=== PATIENT | female | born 1985 | race Hispanic/Latino ===

== ENCOUNTER 2019-04-30 08:40 | Outpatient (CLI) | payer OTHER ==
--- NOTE | 2019-04-30 10:11 | ULT ---
OB ULTRASOUND: HISTORY: anatomy. FINDINGS: A single live intrauterine gestation is seen with measurements corresponding to an estimated gestatio nal age of 19 weeks 4 days and an KATHRYN of 09/20/2019. The estimated weight measures 297 g or 10 oz (76th percentile by Hadlock criteria). measurements are as follows: BPD: 4.38 cm (19 weeks 2 days) HC: 16.63 cm (19 weeks 3 days) AC: 14.15 cm (19 weeks 4 days) FL: 3.09 cm (19 weeks 5 days) heart rate measures 160 beats per minute. Placenta is anteriorly located without evidence of pl acenta previa. HOLLAND measures 9.6 cm. Cervical length measures 4.9 cm. Three vessel cord, cord insertion, kidneys, bladder, stomach, lateral ventricles, cerebellum, s pine, lips/nose and upper and lower extremities are visualized without definite anomalies. The four chambered heart is not satisfactorily imaged. IMPRESSION: Single live intrauterine of 19 weeks' 4 days' estimated gestational age and estimated date of delivery of 09/20/2019. POS: SHARRI
== END 2019-04-30 08:41 | disposition home or self-care (01) ==
LOC: BICULT 08:40
PROVIDERS: ATTEND Family Medicine
DX: Z34.82 Encounter for supervision of other normal pregnancy, second trimester (principal); Z3A.19 19 weeks gestation of pregnancy
CPT/HCPCS: 76805

== ENCOUNTER 2019-08-25 12:09 | Day surgery (SDC) | payer OTHER ==
[2019-08-25 12:51] VITALS: BMI 36.1
[2019-08-25] MEDS ORDERED: Fioricet 325/50/40 mg Tablet PO PRN (13:05)
[2019-08-25] MEDS ORDERED: hydrALAZINE 20 MG/ML VIAL SLOW IVP PRN (13:10)
[2019-08-25 13:44] LABS: Hemoglobin 11.4 g/dL (12.0-16.0); Mean Corpuscular HGB CONC 33.7 g/dL (32.0-36.0); Mean Corpuscular Hemoglobin 29.5 pg (27.0-31.0); Mean Corpuscular Volume 87.4 fL (78.0-98.0); Mean Platelet Volume 12.5 fL (7.4-10.4); Platelet Count 111 thou/uL (130-400); RBC Distribution Width 13.5 % (11.5-14.5); Red Blood Cell (RBC) Count 3.87 mill/uL (4.20-5.40); White Blood Cell (WBC) Count 6.6 thou/uL (4.8-10.8)
[2019-08-25 13:52] LABS: Creatinine, Urine 197.78 mg/dL (47-110)
[2019-08-25 14:02] LABS: ALT (SGPT) 24 U/L (8-55); AST (SGOT) 46 U/L (5-34); Albumin 3.2 g/dL (3.5-5.0); Alkaline Phosphatase 86 U/L (40-110); Anion Gap 13 mmol/L (10-20); BUN (Urea Nitrogen) 7 mg/dL (7.0-18.7); Bilirubin, Total 0.3 mg/dL (0.2-1.2); Calc. Creatinine Clearance 230 mL/min (70-130); Calcium 8.4 mg/dL (7.8-10.44); Carbon Dioxide 18 mmol/L (22-29); Chloride 109 mmol/L (98-107); Estimated GFR-MDRD Greater than 90; Globulin 3.2 g/dL (2.4-3.5); Glucose 108 mg/dL (70-105); Potassium 3.7 mmol/L (3.5-5.1); Protein, Total 6.4 g/dL (6.0-8.3); Sodium 136 mmol/L (136-145)
[2019-08-25] MEDS ORDERED: HumaLOG 300 UNITS/3 ML VIAL SC SCH (16:33)
--- NOTE | 2019-08-25 18:22 | PRG ---
DATE OF SERVICE: 08/25/2019 PRIMARY OB: Dr. Lizzy Overton. CHIEF COMPLAINT: Elevated blood pressures with headache. HISTORY OF PRESENT ILLNESS: The patient is a 34-year-old, G2, P1 female with an intrauterine at , who is presenting to Labor and Delivery at her doctor's recommendation due to elevated pressures at home. The patient reports at home she has been having pressures in the 140 over 80s to 90s, and had been having a frontal headache today. The patient's course is complicated with type 2 diabetes on insulin with good blood sugar control. On arrival, the patient reports that she has been having good control. She denies fever, illness, cough, chest pain, shortness of breath, nausea, vomiting, diarrhea, constipation, hip problems, knee problems, muscle weakness. PAST MEDICAL HISTORY: Type 2 diabetes, depression. PAST SURGICAL HISTORY: Negative. SOCIAL HISTORY: Denies drug, alcohol, or tobacco use. OB LABS: Blood type is A positive. HIV negative. Syphilis negative. GC and chlamydia are negative. Rubella immune. REVIEW OF SYSTEMS: Per HPI. PHYSICAL EXAMINATION: VITAL SIGNS: Blood pressure on arrival was 145/85, heart rate of 85, respiratory rate of 20, saturating 97% on room air, temperature 98.3. Over the course of 4 hours, blood pressures had normalized with only that single elevated pressure. The remaining pressures ranged from one teens to 130s over 50s to 70s diastolic. GENERAL: She appears to be in no acute distress. She is alert, oriented, cooperative, and pleasant to interact with. HEAD: Normocephalic, atraumatic. ABDOMEN: Soft. DTRs are not difficult to elicit. heart tracing shows the fetus with a baseline in the 130s with moderate long-term variability, positive 15 x 15 accelerations, no decelerations, no contractions on the monitor. LABORATORY DATA: Labs today show white count of 6.6, hemoglobin of 11.4, hematocrit of 33.9, platelets of 111,000. Reviewing her platelets over the course of this show a drop from 150s in February slowly over the course of her till 111,000 today. Sodium 136, potassium 3.7, BUN 7, creatinine 0.58, glucose 108, T bilirubin 0.3, AST of 46, ALT of 24, AST urine of 30, creatinine of 197 giving us a protein to creatinine ratio of less than 0.15. ASSESSMENT AND PLAN: The patient is a 34-year-old female with an intrauterine at with type 2 diabetes on insulin and having some borderline elevated pressures at home. Here over the course of 4 hours, blood pressures have been normal except for a single mild range elevation on arrival. Labs have been insignificant except for some thrombocytopenia, which seems to be repeating a course similar to her last . The patient may be developing gestational thrombocytopenia. The patient is following up with her primary OB on . I have given her provider an update including lab findings. The patient is being discharged home with precautions, fetus has a category 1 tracing and reactive NST. During her stay, the patient had a meal and was given 5 units of Humalog consistent with what she does at home. Job ID: [id number]
== END 2019-08-25 17:15 | disposition home or self-care (01) ==
LOC: L&D/OP 12:09
PROVIDERS: ATTEND Family Medicine
DX: O99.89 Other specified diseases and conditions complicating pregnancy, childbirth and the puerperium (principal); R03.0 Elevated blood-pressure reading, without diagnosis of hypertension; R51 Headache; O24.919 Unspecified diabetes mellitus in pregnancy, unspecified trimester; O99.340 Other mental disorders complicating pregnancy, unspecified trimester; F32.9 Major depressive disorder, single episode, unspecified; Z3A.00 Weeks of gestation of pregnancy not specified; Z79.4 Long term (current) use of insulin
CPT/HCPCS: 36415; 80053; 82570; 84156; 85027

== ENCOUNTER 2019-09-08 09:58 | Inpatient (IN) | payer OTHER ==
[~2019-09-08 09:58] MED LIST: Lidocaine 2% MPF 10 ML AMP (For Epidural Use) ONE
[2019-09-08 11:09] VITALS: BMI 37.5
[2019-09-08] MEDS ORDERED: Acetaminophen/Codeine 30-300mg Tablet PO PRN (11:34)
[2019-09-08] MEDS ORDERED: Misoprostol 200 MCG TAB PR PRN (11:34)
[2019-09-08] MEDS ORDERED: Acetaminophen 500 MG TAB PO PRN (11:34)
[2019-09-08] MEDS ORDERED: hydrALAZINE 20 MG/ML VIAL SLOW IVP PRN (11:34)
[2019-09-08] MEDS ORDERED: Promethazine HCl 25 MG/ML VIAL IM PRN (11:34)
[2019-09-08] MEDS ORDERED: Lidocaine 1% (PF) 30 ML VIAL SC PRN (11:34)
[2019-09-08] MEDS ORDERED: HYDROcodone/Acetaminophen 5/325 mg Tablet PO PRN (11:34)
[2019-09-08] MEDS ORDERED: Butorphanol Tartrate 1 MG/ML VIAL SLOW IVP PRN (11:34)
[2019-09-08] MEDS ORDERED: NS / Oxytocin 40 units/1000ml 1,000 ML IV PRN (11:34)
--- NOTE | 2019-09-08 11:40 | CON ---
DATE OF CONSULTATION: 09/08/2019 CONSULTING PHYSICIAN: Lizzy Overton MD. HISTORY OF PRESENT ILLNESS: This is a 34-year-old, G5, P4, at 38 weeks and 6 days, who was sent from the clinic for elevated blood pressures at term greater than 160s and a headache. The patient has been followed for type 2 diabetes and was controlled on oral glycemic agents until recently and was placed on insulin. Her blood sugars are reportedly controlled well with Lantus and Humalog. She has been followed for mild range blood pressures in clinic for several weeks, however, when she was seen in clinic today, she was noted to have blood pressures in the 160s with headache. She has also been followed for declining platelets, which has been consistent with her previous pregnancies. Upon presentation, the patient still complains of mild headache, but it does not worsen. She denies any visual changes or right upper quadrant pain. She denies any vaginal bleeding, leakage of fluid , contractions, or decreased movement. REVIEW OF SYSTEMS: Negative for head, eyes, ears, nose, throat, cardiovascular, respiratory, GI, , neuropsych, musculoskeletal, skin, or constitutional symptoms other than mentioned above. PAST MEDICAL HISTORY: Type 2 diabetes. PAST SURGICAL HISTORY: None. ALLERGIES: NO KNOWN DRUG ALLERGIES. MEDICATIONS: 1. Metformin 1000 mg p.o. b.i.d. 2. vitamin daily. 3. Lantus 30 units daily. 4. Humalog 7 units with meals. 5. Zoloft 20 mg daily. 6. Aspirin 81 mg daily. SOCIAL HISTORY: Negative for tobacco, alcohol, or drug abuse. PHYSICAL EXAMINATION: VITAL SIGNS: Blood pressure 150/100, pulse 79, respiratory rate 18, temperature 98.6. GENERAL: Awake, alert, no acute distress. CHEST: Nonlabored. ABDOMEN: Obese gravid, soft, nontender to palpation. PELVIC: Normal-appearing external female genitalia. SVE; 2, thick and high. Unable to palpate presenting part. IMAGING STUDIES: I performed a bedside ultrasound to assess position and confirmed the fetus to be in vertex presentation. ASSESSMENT AND PLAN: A 34-year-old, G5, P4, at 38 weeks and 6 days with type 2 diabetes and new onset hypertension at term. Plan is to proceed with induction of labor for elevated blood pressures at term, however, they are not severe here at this time. We will continue to monitor her blood pressures and if severe, I would recommend starting magnesium as well as antihypertensive treatment at that time. At this point, they are not severe range and did not require treatment. Would recommend preeclampsia labs to further assess. I will be available for any further questions or concerns. Job ID: [id number] MTDD
[2019-09-08] MEDS ORDERED: Dextrose 5% in Water 1,000 ML IV PRN (11:42)
[2019-09-08] MEDS ORDERED: Dextrose 50% Abboject 50 ML SYRINGE SLOW IVP PRN (11:42)
[2019-09-08] MEDS ORDERED: NS w/ Oxytocin 10 units 500 ML IV SCH (11:45)
[2019-09-08] MEDS: Misoprostol 100 MCG TAB VAG SCH ×2 (11:54→18:18)
[2019-09-08] MEDS: Lactated Ringer's 1,000 ML IV SCH (11:55)
[2019-09-08 12:29] LABS: Hemoglobin 12.5 g/dL (12.0-16.0); Mean Corpuscular HGB CONC 33.6 g/dL (32.0-36.0); Mean Corpuscular Hemoglobin 29.3 pg (27.0-31.0); Mean Corpuscular Volume 87.1 fL (78.0-98.0); Platelet Count 121 thou/uL (130-400); RBC Distribution Width 14.1 % (11.5-14.5); Red Blood Cell (RBC) Count 4.26 mill/uL (4.20-5.40); White Blood Cell (WBC) Count 7.4 thou/uL (4.8-10.8)
[2019-09-08 13:10] LABS: Hep B Surf Ag Non-Reactive S/CO (NonReactive)
[2019-09-08 13:11] LABS: Syphilis Antibody Nonreactive (Nonreactive); Syphilis Antibody Index 0.06 S/CO (<1.00 Non-Reactive)
[2019-09-08 13:29] LABS: ALT (SGPT) 21 U/L (8-55); AST (SGOT) 42 U/L (5-34); Albumin 3.4 g/dL (3.5-5.0); Alkaline Phosphatase 97 U/L (40-110); Anion Gap 15 mmol/L (10-20); BUN (Urea Nitrogen) 11 mg/dL (7.0-18.7); Bilirubin, Total 0.2 mg/dL (0.2-1.2); Calc. Creatinine Clearance 207 mL/min (70-130); Calcium 8.6 mg/dL (7.8-10.44); Carbon Dioxide 19 mmol/L (22-29); Chloride 109 mmol/L (98-107); Estimated GFR-MDRD Greater than 90; Glucose 78 mg/dL (70-105); Potassium 4.1 mmol/L (3.5-5.1); Protein, Total 6.4 g/dL (6.0-8.3); Sodium 139 mmol/L (136-145)
[2019-09-08] MEDS ORDERED: Terbutaline Sulfate 1 MG/ML VIAL ONE (14:21)
[2019-09-08 17:27] LABS: Bilirubin Negative (Negative); Blood, Urine Negative (Negative); Clarity Clear (Clear); Glucose, Urine (Dipstick) Normal (Negative); Leukocyte 75 Leu/uL (Negative); Nitrite Negative (Negative); Protein, Urine (Dipstick) Negative (Neg-Trace); RBC/HPF 0-3 HPF (0-3); Urobilinogen Normal mg/dL (Less than 2); WBC/HPF 0-3 HPF (0-3)
[2019-09-08 17:31] LABS: Bacteria/HPF 1+ HPF (None Seen)
[2019-09-08] MEDS: NS w/ Oxytocin 10 units 500 ML IV SCH (17:39)
[2019-09-08] MEDS ORDERED: Terbutaline Sulfate 1 MG/ML VIAL SC SCH (19:15)
[2019-09-08] MEDS ORDERED: Acetaminophen 500 MG TAB PO SCH (19:30)
[2019-09-09] MEDS ORDERED: Magnesium Sulfate 20 gm/500 ml 20 GM/500 ML BAG ONE (00:59)
[2019-09-09] MEDS ORDERED: Calcium Gluc 4.6 MEQ/10 ML (100 MG/ML) IV PRN (01:04)
[2019-09-09] MEDS ORDERED: Magnesium Sulfate 20 gm/500 ml 20 GM/500 ML BAG IVPB PRN (01:04)
[2019-09-09] MEDS ORDERED: hydrALAZINE 20 MG/ML VIAL SLOW IVP PRN ×2 (01:05→15:20)
[2019-09-09] MEDS ORDERED: Magnesium Sulfate 20 gm/500 ml 4 GM/100 ML BAG IVPB SCH (01:15)
[2019-09-09] MEDS: Lactated Ringer's 1,000 ML IV SCH (01:21)
[2019-09-09] MEDS: Labetalol HCl 100 MG/20 ML VIAL ONE ×2 (03:38→04:15)
[2019-09-09] MEDS: Ondansetron PF 4 MG/2 ML Vial IVP PRN ×2 (03:44→07:45)
[2019-09-09] MEDS ORDERED: Labetalol 100 MG TAB PO SCH (03:45)
[2019-09-09] MEDS ORDERED: Labetalol HCl 100 MG/20 ML VIAL SLOW IVP SCH (04:15)
[2019-09-09] MEDS ORDERED: Fentanyl 4 mcg/Bup 0.1% Cadd 100 ML ONE (08:02)
[2019-09-09] MEDS ORDERED: diphenhydrAMINE 50 MG/ML VIAL IVP PRN ×2 (09:45→11:43)
[2019-09-09] MEDS ORDERED: Communication Order-Pharmacy FS SCH ×2 (09:45→11:45)
[2019-09-09] MEDS ORDERED: EPHEDRINE 25 MG/5 ML SYRINGE SLOW IVP PRN (09:45)
[2019-09-09] MEDS ORDERED: Lactated Ringer's 500 ML IV PRN (09:45)
[2019-09-09] MEDS ORDERED: Naloxone HCl 0.4 mg/ml Vial IVP PRN ×4 (09:45→11:43)
[2019-09-09] MEDS ORDERED: Ondansetron PF 4 MG/2 ML Vial IVP PRN ×3 (09:45→15:20)
[2019-09-09] MEDS ORDERED: Promethazine HCl 25 MG/ML VIAL IM PRN ×2 (09:45→11:43)
[2019-09-09] MEDS ORDERED: Fentanyl 4 mcg/Bupivacaine 0.1% Cassette 100 ML EPIDURAL SCH (09:45)
[2019-09-09] MEDS ORDERED: Acetaminophen 325 MG TAB PO PRN ×2 (09:45→15:20)
[2019-09-09] MEDS ORDERED: Azithromycin 500 MG VIAL ONE (10:28)
[2019-09-09] MEDS ORDERED: Oxytocin 10 UNITS/ML VIAL ONE (10:32)
[2019-09-09] MEDS ORDERED: EPHEDRINE 25 MG/5 ML SYRINGE ONE ×2 (10:32→11:05)
[2019-09-09] MEDS ORDERED: PHENYLEPHRINE-NS 100 MCG/ML 10 ML SYRINGE ONE (10:32)
[2019-09-09] MEDS ORDERED: Ondansetron PF 4 MG/2 ML Vial ONE (10:32)
[2019-09-09] MEDS ORDERED: Lidocaine 2% MPF 10 ML AMP (For Epidural Use) ONE (10:48)
[2019-09-09] MEDS ORDERED: Fentanyl 100 MCG/2 ML VIAL ONE (10:48)
[2019-09-09 11:24] LABS: Hemoglobin 12.1 g/dL (12.0-16.0); Mean Corpuscular HGB CONC 33.8 g/dL (32.0-36.0); Mean Corpuscular Hemoglobin 29.4 pg (27.0-31.0); Mean Corpuscular Volume 86.9 fL (78.0-98.0); Mean Platelet Volume 12.4 fL (7.4-10.4); Platelet Count 120 thou/uL (130-400); RBC Distribution Width 14.1 % (11.5-14.5); Red Blood Cell (RBC) Count 4.13 mill/uL (4.20-5.40); White Blood Cell (WBC) Count 10.2 thou/uL (4.8-10.8)
[2019-09-09] MEDS ORDERED: Ondansetron HCl/PF 4 MG/2 ML Vial IVP PRN (11:43)
[2019-09-09] MEDS ORDERED: L&D-Morphine 4 MG/ML VIAL SLOW IVP PRN (11:43)
[2019-09-09] MEDS ORDERED: Naloxone HCl 0.4 mg/ml Vial IV PRN (11:43)
[2019-09-09] MEDS ORDERED: Meperidine HCl/PF 25 MG/ML VIAL SLOW IVP PRN (11:43)
[2019-09-09] MEDS ORDERED: HYDROmorphone 2 MG/ML VIAL SLOW IVP PRN (11:43)
[2019-09-09] MEDS ORDERED: Ketorolac Tromethamine 30 MG/ML VIAL IVP PRN (11:43)
[2019-09-09] MEDS ORDERED: Promethazine HCl 25 MG SUPP PR PRN (11:43)
[2019-09-09] MEDS ORDERED: Ketorolac Tromethamine 30 MG/ML VIAL IVP SCH (11:45)
[2019-09-09] MEDS: HumaLOG 300 UNITS/3 ML VIAL SC PRN ×2 (12:27→14:44)
--- NOTE | 2019-09-09 14:07 | OP ---
DATE OF PROCEDURE: 09/09/2019 PRIMARY CLINICAL DATA MANAGEMENT DIRECTOR: Lizzy Overton MD The patient is a 34-year-old female, who underwent a primary . Please refer to Dr. Lizzy Ovreton for complete operative details. I functioned as first front ventilator to her. Job ID: [id number]
--- NOTE | 2019-09-09 14:13 | OP ---
DATE OF PROCEDURE: 09/09/2019 PREOPERATIVE DIAGNOSES: 1. Term intrauterine in labor with non-reassuring heart tones and severe -induced hypertension. 2. Adult onset diabetes. POSTOPERATIVE DIAGNOSES: 1. Term intrauterine in labor with non-reassuring heart tones and severe -induced hypertension. 2. Adult onset diabetes. 3. Status post delivery with placental abruption. PROCEDURE PERFORMED: Primary low-transverse section. VENEER JOINER: Dr. Clark. ANESTHESIA: Epidural anesthetic. DESCRIPTION OF PROCEDURE: After adequate epidural anesthetic, the patient was placed in supine position. A Lindsay catheter previously had been placed in the bladder. The abdomen was prepped and draped in usual sterile technique. A Pfannenstiel incision was made in the inferior aspect of the abdomen. Subcutaneous tissue opened with sharp dissection. Fascia opened with sharp dissection. Peritoneum opened with sharp and blunt dissection. Noted that the abdomen was still with a gravid uterus, a large João O retractor was placed without difficulty and a low-transverse incision was made on the uterus. A viable male was delivered from vertex presentation without difficulty. Infant breathed and cried spontaneously. Cord was clamped and cut, and the infant was handed to the care of the Neonatology Team. A section of cord was excised for cord gases and additional cord blood was obtained and sent to laboratory. The placenta was delivered manually, appeared intact, and noted that there was a moderate-sized clot as well as some moderate bright red bleeding in the uterus, consistent with placental abruption. There were no placental membrane fragments. The hysterotomy edges were grasped with ring forceps and the hysterotomy was then closed in continuous fashion using 0 Monocryl suture. Hemostasis was adequate. Uterus was firm with minimal bleeding. There was no additional bleeding. The peritoneum was then closed in continuous fashion using 2-0 chromic. The fascia was then closed in continuous fashion using 0 Vicryl, and the subcutaneous tissue closed in continuous fashion using 2-0 plain. Noted that sponge and instrument counts were correct x2, the skin was then closed using naida. There were no other complications noted. The baby is a viable male infant, weight is 7 pounds and 3 ounces. Apgars 8 at 1 minute, 9 at 5 minutes. EBL 500 mL. [facility] is pending at this time. Job ID: [id number]
[2019-09-09] MEDS ORDERED: Zolpidem Tartrate 5 MG TAB PO PRN (15:20)
[2019-09-09] MEDS ORDERED: Acetaminophen/Codeine 30-300mg Tablet PO PRN (15:20)
[2019-09-09] MEDS ORDERED: Simethicone Chewable 80 MG TAB PO PRN (15:20)
[2019-09-09] MEDS ORDERED: Calcium Gluconate 4.6 MEQ in Sodium Chloride 0.9% 100 ML IVPB PRN (15:20)
[2019-09-09] MEDS ORDERED: Bisacodyl 10 MG SUPP PR PRN (15:20)
[2019-09-09] MEDS ORDERED: Lanolin Ointment 7 GM TUBE TOP PRN (15:20)
[2019-09-09] MEDS ORDERED: diphenhydrAMINE 25 MG CAP PO PRN (15:20)
[2019-09-09] MEDS: HYDROcodone/Acetaminophen 5/325 mg Tablet PO PRN ×2 (15:47→20:17)
[2019-09-09] MEDS: Ibuprofen 800 MG TAB PO SCH (19:32)
[2019-09-09] MEDS: Magnesium Sulfate 20 gm/500 ml 20 GM/500 ML BAG IVPB SCH (21:00)
[2019-09-09] MEDS: Labetalol 100 MG TAB PO SCH (21:55)
[2019-09-10] MEDS: HumaLOG 300 UNITS/3 ML VIAL SC PRN ×3 (00:14→22:31)
[2019-09-10] MEDS: Magnesium Sulfate 20 gm/500 ml 20 GM/500 ML BAG IVPB SCH (06:30)
[2019-09-10 07:22] LABS: Hemoglobin 9.9 g/dL (12.0-16.0); Mean Corpuscular HGB CONC 34.4 g/dL (32.0-36.0); Mean Corpuscular Hemoglobin 29.7 pg (27.0-31.0); Mean Corpuscular Volume 86.4 fL (78.0-98.0); Mean Platelet Volume 12.2 fL (7.4-10.4); Platelet Count 101 thou/uL (130-400); Red Blood Cell (RBC) Count 3.32 mill/uL (4.20-5.40); White Blood Cell (WBC) Count 8.5 thou/uL (4.8-10.8)
[2019-09-10] MEDS: HYDROcodone/Acetaminophen 5/325 mg Tablet PO PRN ×2 (08:12→15:16)
[2019-09-10] MEDS: Ibuprofen 800 MG TAB PO SCH ×3 (08:22→17:00)
[2019-09-10] MEDS: metFORMIN 500 MG TAB PO SCH ×2 (10:02→17:17)
[2019-09-10] MEDS: Docusate Calcium (SURFAK) 240 MG CAP PO SCH ×2 (10:35→21:16)
[2019-09-10] MEDS: Ferrous Sulfate 325 MG TAB PO SCH ×2 (10:36→21:15)
[2019-09-10] MEDS: Prenatal Vitamin 1 TAB PO SCH (10:37)
[2019-09-10] MEDS: Labetalol 100 MG TAB PO SCH ×2 (11:38→21:16)
[2019-09-10] MEDS: Misoprostol 100 MCG TAB VAG SCH ×3 (12:06→12:09)
[2019-09-10] MEDS: Lactated Ringer's 1,000 ML IV SCH (12:07)
[2019-09-10] MEDS: NS w/ Oxytocin 10 units 500 ML IV SCH (12:07)
[2019-09-11] MEDS: Ibuprofen 800 MG TAB PO SCH ×2 (01:06→08:13)
[2019-09-11] MEDS: HYDROcodone/Acetaminophen 5/325 mg Tablet PO PRN (01:06)
[2019-09-11] MEDS: Prenatal Vitamin 1 TAB PO SCH (08:13)
[2019-09-11] MEDS: Docusate Calcium (SURFAK) 240 MG CAP PO SCH (08:13)
[2019-09-11] MEDS: metFORMIN 500 MG TAB PO SCH (08:13)
[2019-09-11] MEDS: Labetalol 100 MG TAB PO SCH (08:14)
[2019-09-11] MEDS: Ferrous Sulfate 325 MG TAB PO SCH (08:14)
[2019-09-11 08:42] LABS: Actual Bicarbonate (HCO3a) 20.9 mEq/L (22-28); Analyzer IN Cardio OR; Base Excess (BEa) -10.4 mEq/L (-2.0 to +3.0)
[2019-09-11 08:43] LABS: Actual Bicarbonate (HCO3v) 17 mEq/L (22-28); Analyzer IN Cardio OR; Base Excess -11.9 mEq/L (-2.0 to +3.0)
[2019-09-11 08:44] LABS: pH (Cord, venous) 7.14 (7.32-7.43)
[2019-09-11 11:50] VITALS: BP 118/59; TEMP 98.4
== END 2019-09-11 12:35 | disposition home or self-care (01) | DRG 786 ==
LOC: L&D 09:58 → 3SW 09-10 10:42
PROVIDERS: ADMIT Family Medicine; ATTEND Family Medicine
PROC: 10D00Z1 Extraction of Products of Conception, Low, Open Approach (ICD-10-PCS; principal; 2019-09-09)
DX: O24.92 Unspecified diabetes mellitus in childbirth (principal); O45.93 Premature separation of placenta, unspecified, third trimester; O13.4 Gestational [pregnancy-induced] hypertension without significant proteinuria, complicating childbirth; O76 Abnormality in fetal heart rate and rhythm complicating labor and delivery; Z3A.38 38 weeks gestation of pregnancy; Z37.0 Single live birth
CPT/HCPCS: 36415; 36416; 51702; 80053; 81001; 82805; 83735; 85027; 86780; 86850; 86900; 86901; 87340; 88307; J0360; J0456; J0690; J2001; J2405; J2590; J3010; J3105; J3475